=== PATIENT | female | born 1955 | race Caucasian/White ===

== ENCOUNTER 2019-05-21 11:14 | Outpatient (CLI) | payer OTHER ==
--- NOTE | 2019-05-21 14:42 | XRAY Report ---
Reason: SPONDYLOSIS, UNSPECIFIED Procedure Date: 05/21/2019 Accession Number: [id number] / [id number] Procedure: XR - Lumbar Spine 2 View CPT Code: Final Report FULL RESULT: EXAM: LUMBOSACRAL SPINE RADIOGRAPHY EXAM DATE: 05/21/2019 12:23 PM. CLINICAL HISTORY: Spondylosis, unspecified. COMPARISONS: None. TECHNIQUE: 3 views. FINDINGS: Alignment: Normal. No spondylolisthesis or scoliosis. Bones: Five [id number] lumbar vertebral bodies are present. No fractures or bone lesions. Disks: Normal. Disk heights are maintained. Facets: Moderate facet arthropathy most pronounced at L5-S1. Sacroiliac Joints: Unremarkable. Soft Tissues: Normal. The visualized bowel gas pattern is normal. IMPRESSION: Increased facet arthropathy at L5-S1, possibly spondylolysis which is not directly seen, no associated spondylolisthesis. [facility]
--- NOTE | 2019-05-21 14:42 | XRAY Report ---
Reason: SPONDYLOSIS, UNSPECIFIED Procedure Date: 05/21/2019 Accession Number: [id number] / [id number] Procedure: XR - Pelvis 1 View CPT Code: Final Report FULL RESULT: EXAM: PELVIS RADIOGRAPHY. EXAM DATE: 05/21/2019 12:23 PM. CLINICAL HISTORY: Spondylosis, unspecified. COMPARISON: None. TECHNIQUE: 1 view. FINDINGS: Bones: Normal. No fracture or bone lesion. Joints: The visualized hip, pubis symphysis, and sacroiliac joints are preserved. No subluxation. Soft Tissues: Normal. No soft tissue swelling. IMPRESSION: Normal pelvis radiography. [facility]
== END 2019-05-21 11:15 | disposition home or self-care (01) ==
LOC: DI 11:14
PROVIDERS: ATTEND Internal Medicine Rheumatology
DX: M47.817 Spondylosis without myelopathy or radiculopathy, lumbosacral region (principal)
CPT/HCPCS: 72100; 72170